=== PATIENT | male | born 1985 | race Caucasian/White ===

== ENCOUNTER 2024-10-18 23:28 | Emergency (ER) | payer MEDICAID ==
[~2024-10-18] VITALS: Ht 170.2 cm; Wt 90.0 kg
[2024-10-18 23:51] VITALS: O2SAT 99
[2024-10-19] MEDS: MORPHINE SULFATE 4 MG/ML INJ (FOR IV/IM USE) IV STA (00:02)
[2024-10-19] MEDS: ONDANSETRON HCL 4MG/2ML INJ IV STA (00:02)
[2024-10-19 00:15] VITALS: TEMP 36.4
[2024-10-19 01:54] LABS: BASOPHILS % 0.5 % (0.0-2.0); EOSINOPHILS % 2.4 % (0.0-5.0); HEMATOCRIT. 41.4 % (42.0-52.0); HEMOGLOBIN. 14.2 g/dL (14.0-18.0); LYMPHOCYTES % 16.8 % (20.0-50.0); MEAN CORPUSCULAR HEMOGLOBIN 31.6 pg (28.0-32.0); MEAN CORPUSCULAR HGB CONC 34.3 g/dL (31.0-37.0); MEAN CORPUSCULAR VOLUME 92.2 fL (80.0-94.0); MEAN PLATELET VOLUME 7.8 fl (7.4-10.4); MONOCYTES % 7.8 % (2.0-8.0); NEUTROPHILS % 72.5 % (40.0-76.0); PLATELET 243 x1000/uL (130-400); RED BLOOD CELL COUNT 4.49 mill/uL (4.7-6.1); WHITE BLOOD COUNT 11.1 x1000/uL (4.5-11.0)
[2024-10-19 02:03] LABS: CHLORIDE 110 mEq/L (98-107); SODIUM 144 mEq/L (136-145)
[2024-10-19 02:04] LABS: CALCIUM 9.1 mg/dL (8.7-10.4); CARBON DIOXIDE 25 mEq/L (21-32)
[2024-10-19 02:09] LABS: CREATININE 0.8 mg/dL (0.6-1.3); GLUCOSE 116 mg/dL (70-105); UREA NITROGEN BLOOD 12 mg/dL (9-23)
[2024-10-19 02:11] LABS: ALANINE AMINOTRANSFERASE 32 IU/L (10-49); ALBUMIN 4.1 g/dL (3.2-4.8); ASPARTATE AMINOTRANSFERASE 20 IU/L (<34); BILIRUBIN TOTAL 0.3 mg/dL (0.1-1.0); PROTEIN TOTAL 6.8 g/dL (6.0-8.3)
[2024-10-19 02:43] VITALS: O2SAT 100
[2024-10-19] MEDS ORDERED: IBUP-2028 MT (02:45)
[2024-10-19] MEDS ORDERED: TOPUD PO (02:45)
[2024-10-19 02:48] LABS: INR 1.1; PROTHROMBIN TIME 11.5 sec (9.6-11.0)
[2024-10-19 02:53] LABS: BILIRUBIN DIRECT < 0.1 mg/dL (<=3.0)
[2024-10-19 03:05] VITALS: BP 120/70; PULSE 58; RESP 17
[2024-10-19] MEDS: KETOROLAC 30MG/ML VIAL IV ONE (03:05)
[2024-10-19 03:14] VITALS: TEMP 97.6
[2024-10-19] MEDS: ACETAMINOPHEN 325MG TABLET PO ONE (03:14)
[2024-10-19] MEDS ORDERED: IOHEXOL-300 100 ML BOTTLE ONE (04:27)
== END 2024-10-19 04:47 | disposition home or self-care (01) ==
LOC: ER 23:31
DX: M25.571 Pain in right ankle and joints of right foot (principal); M79.671 Pain in right foot; M41.82 Other forms of scoliosis, cervical region; Z87.891 Personal history of nicotine dependence; Z88.0 Allergy status to penicillin; V89.2XXA Person injured in unspecified motor-vehicle accident, traffic, initial encounter; Y93.89 Activity, other specified; Y92.410 Unspecified street and highway as the place of occurrence of the external cause; Y99.8 Other external cause status; R03.0 Elevated blood-pressure reading, without diagnosis of hypertension
CPT/HCPCS: 99285; 29515; 70450; 96374; 96375; 80076; 80048; 85025; 85610; 86850; 86900; 86901; 36415; 73590; 73610; 73630; 71260; 72125; 74177; J1885; Q9967; J2405; J2270